=== PATIENT | female | born 1960 | race Caucasian/White ===

== ENCOUNTER 2023-06-11 12:32 | Day surgery (SDC) | payer BC | END 2023-06-11 22:51 | disposition home or self-care (01) | LOC: WOUND 12:32 | DX: S31.104A Unspecified open wound of abdominal wall, left lower quadrant without penetration into peritoneal cavity, initial encounter (principal); Z88.1 Allergy status to other antibiotic agents; X58.XXXA Exposure to other specified factors, initial encounter | CPT/HCPCS: A9270; G0463 ==

== ENCOUNTER 2023-06-17 01:18 | Day surgery (SDC) | payer BC | END 2023-06-17 22:55 | disposition home or self-care (01) | LOC: WOUND 01:18 | DX: S71.109D Unspecified open wound, unspecified thigh, subsequent encounter (principal); X58.XXXD Exposure to other specified factors, subsequent encounter | CPT/HCPCS: A9270 ==

== ENCOUNTER 2023-06-24 04:01 | Day surgery (SDC) | payer BC | END 2023-06-24 23:17 | disposition home or self-care (01) | LOC: WOUND 04:01 | DX: S71.109D Unspecified open wound, unspecified thigh, subsequent encounter (principal); X58.XXXD Exposure to other specified factors, subsequent encounter | CPT/HCPCS: A9270; G0463 ==

== ENCOUNTER 2023-07-01 00:18 | Day surgery (SDC) | payer BC | END 2023-07-01 22:40 | disposition home or self-care (01) | LOC: WOUND 00:18 | DX: S31.104A Unspecified open wound of abdominal wall, left lower quadrant without penetration into peritoneal cavity, initial encounter (principal); L02.214 Cutaneous abscess of groin; C55 Malignant neoplasm of uterus, part unspecified | CPT/HCPCS: A9270; G0463 ==

== ENCOUNTER 2023-07-15 01:28 | Day surgery (SDC) | payer BC | END 2023-07-15 22:35 | disposition home or self-care (01) | LOC: WOUND 01:28 | DX: L02.214 Cutaneous abscess of groin (principal) | CPT/HCPCS: A9270; G0463 ==

== ENCOUNTER 2023-07-22 01:39 | Day surgery (SDC) | payer BC | END 2023-07-22 22:47 | disposition home or self-care (01) | LOC: WOUND 01:39 | DX: L02.214 Cutaneous abscess of groin (principal); S71.109D Unspecified open wound, unspecified thigh, subsequent encounter; X58.XXXD Exposure to other specified factors, subsequent encounter | CPT/HCPCS: A9270; G0463 ==

== ENCOUNTER 2023-07-29 02:08 | Day surgery (SDC) | payer BC | END 2023-07-29 22:37 | disposition home or self-care (01) | LOC: WOUND 02:08 | DX: L02.214 Cutaneous abscess of groin (principal); S71.109D Unspecified open wound, unspecified thigh, subsequent encounter; X58.XXXD Exposure to other specified factors, subsequent encounter | CPT/HCPCS: A9270; G0463 ==

== ENCOUNTER 2023-08-05 03:05 | Day surgery (SDC) | payer BC | END 2023-08-05 23:01 | disposition home or self-care (01) | LOC: WOUND 03:05 | DX: S71.102D Unspecified open wound, left thigh, subsequent encounter (principal); X58.XXXD Exposure to other specified factors, subsequent encounter | CPT/HCPCS: G0463 ==

== ENCOUNTER 2023-08-12 08:00 | Day surgery (SDC) | payer BC | END 2023-08-12 23:59 | disposition home or self-care (01) | LOC: WOUND 08:00 | DX: L02.214 Cutaneous abscess of groin (principal) | CPT/HCPCS: A9270; G0463 ==

== ENCOUNTER 2023-08-19 01:54 | Day surgery (SDC) | payer BC | END 2023-08-19 23:28 | disposition home or self-care (01) | LOC: WOUND 01:54 | DX: S71.109D Unspecified open wound, unspecified thigh, subsequent encounter (principal); X58.XXXD Exposure to other specified factors, subsequent encounter; L02.214 Cutaneous abscess of groin | CPT/HCPCS: A9270; G0463 ==

== ENCOUNTER 2023-08-26 03:27 | Day surgery (SDC) | payer BC | END 2023-08-26 22:38 | disposition home or self-care (01) | LOC: WOUND 03:27 | DX: S71.109D Unspecified open wound, unspecified thigh, subsequent encounter (principal); X58.XXXD Exposure to other specified factors, subsequent encounter | CPT/HCPCS: A9270; G0463 ==

== ENCOUNTER 2023-09-09 05:18 | Day surgery (SDC) | payer BC | END 2023-09-09 22:36 | disposition home or self-care (01) | LOC: WOUND 05:18 | DX: S71.109D Unspecified open wound, unspecified thigh, subsequent encounter (principal); X58.XXXD Exposure to other specified factors, subsequent encounter | CPT/HCPCS: G0463 ==

== ENCOUNTER 2023-11-26 01:20 | Day surgery (SDC) | payer BC | END 2023-11-26 22:42 | disposition home or self-care (01) | LOC: WOUND 01:20 | DX: L02.214 Cutaneous abscess of groin (principal); C55 Malignant neoplasm of uterus, part unspecified; S71.109D Unspecified open wound, unspecified thigh, subsequent encounter; X58.XXXD Exposure to other specified factors, subsequent encounter | CPT/HCPCS: A9270; G0463 ==

== ENCOUNTER 2023-12-02 04:59 | Day surgery (SDC) | payer BC | END 2023-12-02 22:55 | disposition home or self-care (01) | LOC: WOUND 04:59 | DX: S31.104D Unspecified open wound of abdominal wall, left lower quadrant without penetration into peritoneal cavity, subsequent encounter (principal); X58.XXXD Exposure to other specified factors, subsequent encounter | CPT/HCPCS: A9270; G0463 ==

== ENCOUNTER 2023-12-09 01:40 | Day surgery (SDC) | payer BC | END 2023-12-09 23:03 | disposition home or self-care (01) | LOC: WOUND 01:40 | DX: S71.109D Unspecified open wound, unspecified thigh, subsequent encounter (principal) | CPT/HCPCS: G0463 ==

== ENCOUNTER 2023-12-16 01:57 | Day surgery (SDC) | payer BC | END 2023-12-16 22:44 | disposition home or self-care (01) | LOC: WOUND 01:57 | DX: S31.104D Unspecified open wound of abdominal wall, left lower quadrant without penetration into peritoneal cavity, subsequent encounter (principal); X58.XXXD Exposure to other specified factors, subsequent encounter | CPT/HCPCS: G0463 ==